=== PATIENT | male | born 1970 | race Caucasian/White ===

== ENCOUNTER 2017-03-05 08:21 | Inpatient (IN) | payer OTHER ==
[2017-02-14 13:12] LABS: BASO % 0.9 %; COMPLETE YES; HEMATOCRIT 38.5 % (42-52); IG% 0.3 %; LYMPH % 19.1 %; LYMPH ABS # 2.09 K/uL (1.2-3.4); MEAN CELL VOLUME 91.2 fL (80-100); MEAN CORPUSCULAR HEMOGLOBIN 31.5 pg (25-34); MEAN CORPUSCULAR HGB CONC 34.5 g/dl (32-36); MEAN PLATELET VOLUME 9.3 fL (7.4-10.4); MONO % 8.1 %; NEUT % 69.6 %; PLATELET COUNT 225 K/uL (130-400); RED BLOOD COUNT 4.22 M/uL (4.7-6.1); WHITE BLOOD COUNT 10.96 K/uL (4.8-10.8)
[2017-02-14 13:55] LABS: BUN/CREATININE RATIO 17.1 (10-20); CALCIUM 8.6 mg/dl (8.5-10.1); CREATININE 0.73 mg/dl (0.60-1.40); POTASSIUM 4.4 mmol/L (3.5-5.1)
[2017-02-14 13:56] LABS: URINE APPEARANCE CLEAR (CLEAR); URINE BILIRUBIN NEG (NEG); URINE COLOR DK YELLOW; URINE NITRITE NEG (NEG); URINE PH 7.5 (4.5-7.5); URINE SPECIFIC GRAVITY 1.029 (1.000-1.030); UROBILINOGEN NEG (NEG)
--- NOTE | 2017-02-14 13:56 | PAT Medication Instructions ---
Service Date Feb 14, 2017. Current Home Medication List Hydrocodon/Acetaminophen 10MG/300MG (Vicodin Hp (10MG/300MG)), 1 TAB PO QID Ibuprofen (Ibuprofen), 1 TAB PO TID PRN for Pain Levetiracetam (Keppra), 2 TAB PO BID Tizanidine (Tizanidine HCl), 1 TAB PO TID PRN for Muscle Spasms Medication Instructions For Your Scheduled Surgery - Check with surgeon for instructions: Ibuprofen (Ibuprofen), 1 TAB PO TID PRN for Pain - Hold the following medications the morning of surgery: Tizanidine (Tizanidine HCl), 1 TAB PO TID PRN for Muscle Spasms - Take the following medications the morning of surgery with a sip of water: Levetiracetam (Keppra), 2 TAB PO BID Hydrocodon/Acetaminophen 10MG/300MG (Vicodin Hp (10MG/300MG)), 1 TAB PO QID ( okay to take up to 4 hours prior to surgery if needed) - Take the following medications as scheduled the night before surgery: Tizanidine (Tizanidine HCl), 1 TAB PO TID PRN for Muscle Spasms (if needed) Levetiracetam (Keppra), 2 TAB PO BID Hydrocodon/Acetaminophen 10MG/300MG (Vicodin Hp (10MG/300MG)), 1 TAB PO QID If you have any questions please call us at [phone] or [phone] or [phone]
[2017-02-14 14:19] LABS: MANUAL MICROSCOPIC REQUIRED? NO; REVIEW REQ? NO
--- NOTE | 2017-02-14 14:27 | DIAGNOSTIC IMAGING REPORT ---
CHEST PREADMISSION(PA/LAT) CLINICAL HISTORY: Preoperative chest COMPARISON STUDY: No previous studies for comparison. FINDINGS: The cardiac and mediastinal contours are normal. There is no evidence of focal pulmonary consolidation. There is no evidence of failure. No pleural effusions are visualized.[ IMPRESSION: No active disease in the chest. Electronically signed by: Sarmad Spencer M.D. 02/14/2017 2:25 PM Dictated Date/Time: 02/14/2017 2:25 PM
[~2017-03-05] VITALS: Ht 180.3 cm; Wt 67.4 kg
[2017-03-05] VITALS (8 sets, daily range): BP systolic 108–135; BP diastolic 71–95; PULSE 59–84; TEMP 36.6–36.9; O2SAT 92–100; Ht 180.3 cm; Wt 67.4 kg
[~2017-03-05 08:21] MED LIST: CEFAZOLIN 1000MG/55 ML D5W IV SCH; HYDR-3763 PO; LACTATED RINGER'S 1000ML 1,000 ML IV SCH; LEVE750T PO; MTR800 PO; ZNF/4 PO
[2017-03-05] MEDS ORDERED: VANCOMYCIN 1GM/270ML NSS ONE (09:20)
--- NOTE | 2017-03-05 09:31 | History & Physical Bridge Note ---
H&P Re-Evaluation Bridge Note: I have examined the patient, reviewed the History & Physical and in the interval since the performance of the History & Physical I have noted the following changes of clinical significance: No changes noted
--- NOTE | 2017-03-05 09:32 | History and Physical ---
History & Physical Date Mar 05, 2017. Chief Complaint Back and leg pain History of Present Illness The patient is a 46 year old male with complaints of back and leg pain Additional History Hepatic Disease: No Endocrine Disorder: No Kidney Disease: No Hypertension: No Heart Disease: No Bleeding Tendencies: No Infectious Diseases: No Allergies Coded Allergies: No Known Allergies (Unverified , 03/05/17) Home Medications Scheduled Hydrocodon/Acetaminophen 10MG/300MG (Vicodin Hp (10MG/300MG)), 1 TAB PO QID Levetiracetam (Keppra), 2 TAB PO BID Scheduled PRN Ibuprofen (Ibuprofen), 1 TAB PO TID PRN for Pain Tizanidine (Tizanidine HCl), 1 TAB PO TID PRN for Muscle Spasms Physical Examination Skin: warm/dry, no rash Eyes: normal inspection, EOMI, sclerae normal ENT: normal ENT inspection, pharynx normal Head: normocephalic, atraumatic Neck: supple, no adenopathy, trachea midline Respiratory/Chest: lungs clear, normal breath sounds, no respiratory distress Cardiovascular: regular rate, rhythm, no edema, no murmur Abdomen / GI: normal bowel sounds, non tender Back: normal inspection Extremities: normal inspection, normal range of motion Neurologic/Psych: no motor/sensory deficits, alert, normal reflexes, oriented x 3 Diagnosis Lumbar spinal stenosis Plan of Treatment Decompression fusion L4 5 L5-S1
[2017-03-05] MEDS ORDERED: FENTANYL CITRATE INJ 50 MCG/1 ML 2 ML VIAL ONE ×4 (09:38→12:07)
[2017-03-05] MEDS ORDERED: MIDAZOLAM HCL 1 MG/ML 2ML VIAL ONE ×2 (09:38→12:23)
[2017-03-05] MEDS ORDERED: NURSING VERBAL MED ORDER STA (09:57)
[2017-03-05] MEDS ORDERED: FLUMAZENIL 0.1 MG/1 ML 10 ML VIAL IV PRN (10:00)
[2017-03-05] MEDS ORDERED: LABETALOL HCL IV 5 MG/ML 20ML IV PRN (10:00)
[2017-03-05] MEDS ORDERED: ATROPINE SULFATE 0.1 MG/ML 5ML SYR IV PRN (10:00)
[2017-03-05] MEDS ORDERED: BACITRACIN 50000 UNIT VIAL ONE (10:00)
[2017-03-05] MEDS ORDERED: PHENYLEPHRINE 100MCG/ML 5ML SYR IV PRN (10:00)
[2017-03-05] MEDS ORDERED: ONDANSETRON INJ 2 MG/ML 2 ML VIAL IV PRN ×2 (10:00→12:15)
[2017-03-05] MEDS ORDERED: NALOXONE HCL 0.4 MG/1 ML VIAL/CARP IV PRN ×3 (10:00→12:15)
[2017-03-05] MEDS ORDERED: SODIUM CHLORIDE 0.9% PF 50 ML VIAL ONE (10:00)
[2017-03-05] MEDS ORDERED: EpHEDrine SULFATE INJ 50 MG/ML AMP IV PRN (10:00)
[2017-03-05] MEDS ORDERED: MEPERIDINE HCL 25 MG/ML CARP IV PRN (10:00)
[2017-03-05] MEDS ORDERED: BUPIVACAINE/EPINEPHRINE 0.5% MPF 1:200,000 10 ML VIAL ONE ×2 (10:00→10:01)
[2017-03-05] MEDS ORDERED: HYDROmorphone INJ 2 MG/ML SYR/VIAL ONE ×3 (10:45→12:05)
[2017-03-05] MEDS ORDERED: ONDANSETRON INJ 2 MG/ML 2 ML VIAL ONE ×2 (11:35→12:10)
[2017-03-05] MEDS ORDERED: DEXAMETHASONE SOD INJ 4 MG/ML VIAL ONE (11:35)
[2017-03-05] MEDS ORDERED: PROPOFOL IV EMULSION 10 MG/ML 20 ML VIAL IV ONE (11:35)
[2017-03-05] MEDS ORDERED: LIDOCAINE HCL 2% 2 ML VIAL (20MG/ML) ONE (11:35)
[2017-03-05] MEDS ORDERED: ROCURONIUM BROMIDE 10 MG/ML 5 ML VIAL ONE (11:35)
[2017-03-05] MEDS ORDERED: FLOSEAL HEMOSTATIC MATRIX 10ML TOP ONE (12:03)
[2017-03-05] MEDS ORDERED: SODIUM CHLORIDE 0.9% 1000ML 1,000 ML IV SCH (12:03)
--- NOTE | 2017-03-05 12:09 | [facility] Operative Report ---
Operative Report Operative Date Mar 05, 2017. Pre-Operative Diagnosis Lumbar spinal stenosis Post-Operative Diagnosis Lumbar spinal stenosis Procedure(s) Performed Her 1 lumbar decompression medial facetectomies foraminotomies L4 5 L5-S1. #2 posterior spinal fusion L4 5 L5-S1. #3 posterior segmental S rotation L4 5 L5-S1. #4 interbody fusion L5-S1. #5 placement peek cage 10 x 26 mm L5-S1. #6 placement of local we harvested morcellized autograft in the posterior lateral gutters. #7 placement of infuse collagen sponge about mask graft in the posterior gutters Lisy bone graft in the interbody space. Surgeon Dr. Chago Palacios Weigher Alloy Surgeon(s) Neris Prather PA-C Estimated Blood Loss 75CC Findings Spinal stenosis Specimens No pathology specimens per surgeon Description of Procedure Patient was met with preoperatively case discussed all questions are dressed. After informed consent patient was taken back to the operative suite and after undergoing successful in patient positioning prone position the Avis table top Rajiv frame all bony promises well-padded eyes inspected to ensure no external pressure. Lumbar spine is prepped draped nostril fashion. Sharp dissection with the assistance of Bovie cautery performed onto an exposing the lamina and transverse processes of L4 5 and the S1 levels bilaterally. From a caudal to cephalad fashion complete laminectomy L5 L4 was performed addressing severe lateral recess stenosis and foraminal disease most impressive the 51 level on the left. After complete decompression pedicle screws are placed in L4 L5 S1 levels bilaterally with assistance of fluoroscopy in the appropriately sized deb placed. Through a transforaminal port and left complete discectomy was performed and plate could subcortical bleeding bone and a 10 x 26 Tarsha peek cage filled with Lisy bone grafting tapped in position. The rods were then locked and final position bilaterally. Transverse processes of 45 and the sacral alar burred to subcortical bleeding bone infuse calm sponge mask graft locally harvested morcellized autograft placed and posterior gutters. A 15 round ANITA drain inserted. Incision then closed with 1 Vicryl in the fascia 2-0 Vicryl simultaneous the 4-0 Monocryl for final skin closure Steri-Strip sterile dressing placed patient we can take PACU stable condition. Please note Neris Vernon present throughout the entire procedure involved in patient positioning complex portions of the procedure and final skin closure. I attest to the content of the Intraoperative Record and any orders documented therein. Any exceptions are noted below.
[2017-03-05] MEDS ORDERED: NEOSTIGMINE METHYLSULFATE 1 MG/ML 10ML VIAL ONE (12:10)
[2017-03-05] MEDS ORDERED: GLYCOPYRROLATE INJ 0.2 MG/ML VIAL ONE (12:10)
[2017-03-05] MEDS ORDERED: KETOROLAC TROMETHAMINE 30 MG/ML VIAL ONE (12:10)
--- NOTE | 2017-03-05 12:12 | DIAGNOSTIC IMAGING REPORT ---
LUMBAR SPINE 2 OR 3 VIEW CLINICAL HISTORY: L4-S1 LAMI/DECOMPRESSION/FUSION/INTERBODY COMPARISON STUDY: No previous studies for comparison. Fluoroscopy time: 22.8 seconds. FINDINGS: 2 fluoroscopic images demonstrate an L5-S1 discectomy with interbody spacer placement. There is a posterior decompression. Note is made of bilateral pedicle screws at the L4, L5 and S1 levels with interconnecting rods. Hardware is intact. IMPRESSION: Expected findings following L5-S1 discectomy and L4-S1 bilateral pedicle screw fusion. Electronically signed by: Ren Juarez M.D. 03/05/2017 12:11 PM Dictated Date/Time: 03/05/2017 12:10 PM
[2017-03-05] MEDS ORDERED: LORAZEPAM 0.5 MG TAB PO PRN (12:15)
[2017-03-05] MEDS ORDERED: DO NOT ADMINISTER FLU VACCINE PRN ×3 (12:15)
[2017-03-05] MEDS ORDERED: ALUMINUM/MAGNESIUM SUSP 30 ML UDC PO PRN (12:15)
[2017-03-05] MEDS ORDERED: ACETAMINOPHEN IV 100 ML IV PRN (12:15)
[2017-03-05] MEDS ORDERED: PROMETHAZINE HCL INJ 12.5 MG in SODIUM CHLORIDE 0.9% 50ML 50 ML IV PRN (12:15)
[2017-03-05] MEDS ORDERED: METOCLOPRAMIDE HCL INJ 5 MG/ML 2 ML VIAL IV PRN (12:15)
[2017-03-05] MEDS ORDERED: SOD PHOSPHATE/SOD BIPHOSPHATE ENEMA 132 ML BTL PR PRN (12:15)
[2017-03-05] MEDS ORDERED: DO NOT ADMINISTER PNEUMOCOCCAL VACCINE PRN ×2 (12:15)
[2017-03-05] MEDS ORDERED: MAGNESIUM HYDROXIDE SUSP 30 ML UDC PO PRN (12:15)
[2017-03-05] MEDS ORDERED: BISACODYL 10 MG SUPP PR PRN (12:15)
[2017-03-05] MEDS ORDERED: hydrOXYzine HCL 25 MG TAB PO PRN (12:15)
[2017-03-05] MEDS ORDERED: ACETAMINOPHEN 500 MG TAB PO PRN (12:15)
[2017-03-05] MEDS ORDERED: LORAZEPAM INJ 0.5 MG in SYRINGE 0.75 ML IV PRN (12:15)
[2017-03-05] MEDS ORDERED: FAMOTIDINE 20 MG TAB PO PRN (12:15)
[2017-03-05] MEDS ORDERED: HYDROmorphone HCL 0.5MG/ML 50 ML CASSETTE ONE (12:24)
[2017-03-05] MEDS: HYDROmorphone INJ 1 MG/ML SYR IV PRN ×6 (12:30→13:28)
[2017-03-05] MEDS: MoRPHine SULFATE 10 MG/ML CARP/VIAL IV PRN ×5 (12:50→13:10)
[2017-03-05] MEDS ORDERED: LORAZEPAM 2 MG/ML 1 ML VIAL ONE (12:59)
[2017-03-05] MEDS ORDERED: NURSING VERBAL MED ORDER ONE ×2 (13:15→13:30)
--- NOTE | 2017-03-05 14:19 | Anesthesiology Progress Note ---
Anesthesia Post Op Note Date & Time Mar 05, 2017 at 14:18 Vital Signs Pain Intensity: 4 Vital Signs Past 12 Hours Date Time Temp Pulse Resp B/P (MAP) Pulse Ox O2 Delivery O2 Flow Rate FiO2 03/05/17 14:00 36.7 75 18 134/87 100 Nasal Cannula 4 03/05/17 13:50 36.7 79 18 138/72 100 Nasal Cannula 4 03/05/17 13:40 36.7 71 18 121/80 100 Nasal Cannula 4 03/05/17 13:30 36.7 51 18 136/93 100 Nasal Cannula 4 03/05/17 13:20 52 18 123/88 100 Nasal Cannula 4 03/05/17 13:10 63 18 129/85 100 Nasal Cannula 4 03/05/17 13:00 63 18 125/94 100 Nasal Cannula 4 03/05/17 12:50 64 18 152/78 100 Nasal Cannula 4 03/05/17 12:40 68 18 132/102 100 Mask 10 03/05/17 12:30 84 14 118/101 100 Mask 10 03/05/17 12:23 36.7 84 14 144/85 100 Mask 10 03/05/17 08:44 36.7 62 20 135/95 98 Room Air Notes Mental Status: alert / awake / arousable, participated in evaluation Pt Amnestic to Procedure: Yes Nausea / Vomiting: adequately controlled Pain: adequately controlled, improving with treatment Airway Patency, RR, SpO2: stable & adequate BP & HR: stable & adequate Hydration State: stable & adequate Anesthetic Complications: no major complications apparent The patient had a high preop narcotic requirement and is on Keppra for seizure disorder. His pain and anxiety was treated with opioids and benzodiazepines in the OR and PACU. He has a Dilaudid ROUTE SPECIALIST and appears to be resting comfortably.
[2017-03-05] MEDS: LACTATED RINGER'S 1000ML 1,000 ML IV SCH ×2 (15:24→19:03)
[2017-03-05] MEDS: HYDROmorphone HCL 0.5MG/ML 50 ML CASSETTE IV PRN ×4 (15:36→23:04)
[2017-03-05] MEDS: LEVETIRACETAM 500 MG TAB PO SCH ×2 (15:38→21:12)
[2017-03-05] MEDS: CLINDAMYCIN IV 600 MG in DEXTROSE 5% 50ML 50 ML IV SCH (17:50)
[2017-03-05] MEDS: DEXAMETHASONE INJ 6 MG in SYRINGE 0 ML IV SCH (17:50)
[2017-03-05] MEDS: DOCUSATE SODIUM/SENNA 50/8.6MG TAB PO SCH (21:12)
[2017-03-06] VITALS (7 sets, daily range): BP systolic 107–137; BP diastolic 70–94; PULSE 54–76; TEMP 36.5–36.9; O2SAT 94–98
[2017-03-06] MEDS: LACTATED RINGER'S 1000ML 1,000 ML IV SCH (01:44)
[2017-03-06] MEDS: DEXAMETHASONE INJ 6 MG in SYRINGE 0 ML IV SCH ×2 (01:45→09:12)
[2017-03-06] MEDS: CLINDAMYCIN IV 600 MG in DEXTROSE 5% 50ML 50 ML IV SCH (01:49)
[2017-03-06] MEDS ORDERED: DC PCA SCH (06:00)
[2017-03-06] MEDS ORDERED: HYDROmorphone INJ 0.5 MG/0.5 ML SYR IV PRN (06:00)
[2017-03-06] MEDS ORDERED: NURSING DECISION MEDICATION ORDER SCH (06:15)
[2017-03-06 06:34] LABS: BASO % 0.1 %; BASO ABS # 0.01 K/uL (0-0.2); COMPLETE YES; HEMATOCRIT 31.3 % (42-52); IG% 0.3 %; LYMPH % 5.6 %; LYMPH ABS # 0.97 K/uL (1.2-3.4); MEAN CELL VOLUME 91.5 fL (80-100); MEAN CORPUSCULAR HEMOGLOBIN 31.3 pg (25-34); MEAN CORPUSCULAR HGB CONC 34.2 g/dl (32-36); MEAN PLATELET VOLUME 9.3 fL (7.4-10.4); MONO % 4.1 %; NEUT % 89.9 %; PLATELET COUNT 210 K/uL (130-400); RED BLOOD COUNT 3.42 M/uL (4.7-6.1); WHITE BLOOD COUNT 17.39 K/uL (4.8-10.8)
[2017-03-06 07:05] LABS: CALCIUM 8.9 mg/dl (8.5-10.1); CREATININE 0.82 mg/dl (0.60-1.40)
[2017-03-06] MEDS ORDERED: RXC5 PO (07:39)
--- NOTE | 2017-03-06 07:40 | Discharge Instructions ---
Discharge Instructions Date of Service Mar 06, 2017. Admission Reason for Admission: Lumbar Spinal Stenosis Discharge Discharge Diagnosis / Problem: lumbar stenosis Discharge Goals Goal(s): Improve function Activity Recommendations Activity Limitations: per Instructions/Follow-up section . Instructions / Follow-Up Instructions / Follow-Up ACTIVITY RECOMMENDATIONS: SELF CARE INSTRUCTIONS AFTER THORACIC/LUMBAR FUSIONS 1. You may walk to your tolerance. It is good exercise for your legs and back. Expect some back and intermittent leg aches and pains. 2. You may perform "counter-top" level activities (make a sandwich, isaiah with a project, etc.). 3. No bending or lifting of more than 10 pounds or back twisting of any nature (roll like a log when turning in bed). 4. You may ride in a car for 20-30 minutes at a time. No driving until after your first visit with your doctor. 5. Frequent changes of position and restricting sitting to 30 minutes at a time will help limit the amount of back spasms and stiffness you may experience. 6. You may discontinue the use of ambulatory aids (cane, crutches, etc.) once your strength and confidence allow. 7. You may binder coverstitch the shower and let water strike your incision when you arrive home at least once daily. Do not take a tub bath, sit in a hot tub or go into a swimming pool until after your first recheck in the office. SPECIAL CARE INSTRUCTIONS: VERY IMPORTANT TO READ AND REVIEW A. Your surgical incision has been closed with a cosmetic suture under the skin that will dissolve in about 6 weeks. In 14 days, you can use a pair of clean scissors and cut the suture that is left outside of the skin at the ends of your incision. 1. The small skin tapes can be removed 7 days after surgery if they have not fallen off by that point. 2. You may keep the wound open to air as much as possible to promote healing after post-op day number 5 unless told otherwise by your doctor. 3. If you think the wound looks like it is becoming infected (redness or worsening drainage) and/or you are experiencing fever, chill or worsening back pain and muscle spasms, contact the office so that we may evaluate you as soon as possible. B. Complications are uncommon, but please contact us if you have any signs or symptoms of: 1. wound infection (fever higher than 102.5 degrees F, redness, separation of wound, drainage, or increasing pain from the incision) 2. blood clots in legs (pain, swelling, redness and warmth in legs) 3. urinary tract infection (fever higher than 102.5 degrees F, burning upon urination or increased frequency of urination) 4. nerve problems (inability to walk on your toes or heels, numbness, loss of bowel or bladder control) 5. any other symptoms that concern you C. Please call the office at if you have any concerns or questions about your operation or recovery. D. No smoking! Smoking drastically decreases the chance of a solid fusion. E. Do not take any anti-inflammatory medications (Indocin, Advil, Motrin, Aspirin, Naprosyn, etc.) as these may inhibit the chance of a solid fusion. Tylenol is okay to take for pain. MANAGING PAIN AFTER SPINAL SURGERY 1. Narcotic medication is intended for short-term use and will be provided for surgical pain. Surgical pain usually lasts for a period of 4-6 weeks. Narcotic medication includes Percocet, Vicodin, Darvocet, Tylenol #3 or Lortab. 2. Longer-term pain is more appropriately treated with non-narcotic medication such as Tylenol ES. 3. Muscle spasm is not appropriately treated with narcotics. Muscle relaxers such as Soma, Flexeril or Skelaxin can be used along with Tylenol ES. 4. Remember that we all live with some "aches and pains". This is not unusual or uncommon after an injury or as we get older. a. Back pain is expected and may include muscle spasms for 4 to 6 weeks after surgery. The pain should gradually improve. If the pain worsens for no apparent reason, please contact the office. b. Intermittent leg pain may also be experienced and should not be concerned about unless it worsens for no apparent reason. If so, please contact the office. 5. We will provide appropriate medication within the normal guidelines of their prescribed use. We will also be very cautious and aware of potential abuse and extended duration of patients' medication needs. a. Pain medications are for your comfort and to assist with sleep and rest so that the tissue can heal. They are not provided in order to return to normal activity and should not be used through the day. To do so or worsening pain at night can result from ongoing tissue damage and development of tolerance to the prescribed medicine. 6. Please allow 2-3 days to process refills. Prescriptions will not be mailed but must be picked up at the office. FOLLOW UP VISIT: Keep your scheduled follow-up appointment. Any questions, please call the office at . Current Hospital Diet Patient's current hospital diet: Regular Diet Discharge Diet Recommended Diet: Regular Diet Procedures Procedures Performed: Her 1 lumbar decompression medial facetectomies foraminotomies L4 5 L5-S1. #2 posterior spinal fusion L4 5 L5-S1. #3 posterior segmental S rotation L4 5 L5-S1. #4 interbody fusion L5-S1. #5 placement peek cage 10 x 26 mm L5-S1. #6 placement of local we harvested morcellized autograft in the posterior lateral gutters. #7 placement of infuse collagen sponge about mask graft in the posterior gutters Lisy bone graft in the interbody space. Pending Studies Studies pending at discharge: no Medical Emergencies . Who to Call and When: Medical Emergencies: If at any time you feel your situation is an emergency, please call 911 immediately. . Non-Emergent Contact Non-Emergency issues call your: Primary Care Provider . "Provider Documentation" section prepared by Chago Palacios. . VTE Core Measure Inpt VTE Proph given/why not?: Edward Lopez, [facility]
[2017-03-06] MEDS: HYDROmorphone INJ 1 MG/ML SYR IV PRN ×2 (09:12→15:24)
[2017-03-06] MEDS: LEVETIRACETAM 500 MG TAB PO SCH ×2 (09:12→22:39)
--- NOTE | 2017-03-06 09:43 | Progress Note ---
Progress Note Date of Service Mar 06, 2017. Progress Note Postoperative day 1 patient's back pain is controlled. Struggling with some left leg proceed weakness. Vital signs are stable. Exam he has no tension signs to the bilateral extremity. Is excellent strength to detailed testing bilateral x-rays. No sensory deficits. Assessment status post lumbar depression fusion replant this time we'll initiate physical therapy today and we'll change him Ativan every 6 hours scheduled and add MS Contin in light of his chronic narcotic use. Hopefully plan for discharge tomorrow.
--- NOTE | 2017-03-06 10:35 | Anesthesiology Progress Note ---
Anesthesia Post Op Note Date & Time Mar 06, 2017 at 10:34 Vital Signs Pain Intensity: 9.0 Vital Signs Past 12 Hours Date Time Temp Pulse Resp B/P (MAP) Pulse Ox O2 Delivery O2 Flow Rate FiO2 03/06/17 08:09 97 Room Air 03/06/17 08:06 36.7 54 16 107/73 (84) 97 Room Air 03/06/17 03:09 36.7 66 18 108/74 (85) 94 Room Air 03/06/17 01:25 Room Air 03/05/17 23:00 36.9 63 16 108/84 (92) 92 Room Air Notes Mental Status: alert / awake / arousable, participated in evaluation Pt Amnestic to Procedure: Yes Nausea / Vomiting: adequately controlled Pain: adequately controlled Airway Patency, RR, SpO2: stable & adequate BP & HR: stable & adequate Hydration State: stable & adequate Anesthetic Complications: no major complications apparent
[2017-03-06] MEDS: MoRPHine SULFATE CR 15 MG TAB (MS CONTIN) PO SCH ×2 (12:49→22:10)
[2017-03-06] MEDS: LORAZEPAM 1 MG TAB PO SCH ×3 (12:49→23:58)
[2017-03-06] MEDS: OXYCODONE HCL IR 5 MG TAB (IMMEDIATE RELEASE) PO PRN (20:18)
[2017-03-06] MEDS ORDERED: NICOTINE 14 MG/24 HR TDSY TD STA (21:09)
[2017-03-06] MEDS ORDERED: NURSING VERBAL MED ORDER ONE (21:15)
[2017-03-06] MEDS: DOCUSATE SODIUM/SENNA 50/8.6MG TAB PO SCH (22:10)
[2017-03-07 06:01] VITALS: BP 101/67; PULSE 87; TEMP 36.5; O2SAT 97
[2017-03-07] MEDS: LORAZEPAM 1 MG TAB PO SCH ×2 (06:12→12:42)
[2017-03-07] MEDS: POLYETHYLENE (MIRALAX) 17 GM PACK PO SCH ×2 (06:12→12:39)
[2017-03-07] MEDS: OXYCODONE HCL IR 5 MG TAB (IMMEDIATE RELEASE) PO PRN ×2 (06:12→12:44)
[2017-03-07 07:01] VITALS: BP 121/75; PULSE 90; TEMP 36.9; O2SAT 98
[2017-03-07] MEDS ORDERED: MRPSR15 PO (07:40)
[2017-03-07] MEDS: MoRPHine SULFATE CR 15 MG TAB (MS CONTIN) PO SCH (09:38)
[2017-03-07 10:22] VITALS: BP 121/75; PULSE 90; TEMP 36.9; O2SAT 98
[2017-03-07] MEDS ORDERED: LEVETIRACETAM 500 MG TAB PO SCH (12:00)
--- NOTE | 2017-03-07 13:15 | Discharge Summary ---
Orthopedic Discharge Summary Admission Date/Reason Mar 05, 2017 at 10:00 Lumbar Spinal Stenosis. Discharge Date/Disposition Mar 07, 2017 Home Diagnosis Principal Diagnosis: Spinal stenosis Admission Physical Exam As per Admitting History & Physical. Hospital Course Patient underwent lumbar decompression fusion tolerated this well and taken to the orthopedic floor postoperatively. Postoperative leash up in amatory leg symptoms improved. Postoperative day #2 ANITA drain decreased nicely symptoms controlled socially discharge home discharge orders and instructions found on the chart for further review. Discharge Instructions Please refer to the electronic Patient Visit Report (Discharge Instructions) for additional information.
== END 2017-03-07 14:18 | disposition home or self-care (01) | DRG 460 ==
LOC: C.ACU 08:21 → C.3E 10:00 → ENRESERV 12:58
PROVIDERS: ADMIT Orthopaedic Surgery Orthopaedic Surgery of the Spine; ATTEND Orthopaedic Surgery Orthopaedic Surgery of the Spine
PROC: 0SG0071 Fusion of Lumbar Vertebral Joint with Autologous Tissue Substitute, Posterior Approach, Posterior Column, Open Approach (ICD-10-PCS; principal; 2017-03-05 10:15)
PROC: 0SG30AJ Fusion of Lumbosacral Joint with Interbody Fusion Device, Posterior Approach, Anterior Column, Open Approach (ICD-10-PCS; principal; 2017-03-05 10:15)
PROC: 0SG3071 Fusion of Lumbosacral Joint with Autologous Tissue Substitute, Posterior Approach, Posterior Column, Open Approach (ICD-10-PCS; principal; 2017-03-05 10:15)
PROC: 0ST40ZZ Resection of Lumbosacral Disc, Open Approach (ICD-10-PCS; principal; 2017-03-05 10:15)
DX: M48.06 Spinal stenosis, lumbar region (principal)